=== PATIENT | male | born 2000 | race Caucasian/White ===

== ENCOUNTER 2022-04-08 14:52 | Emergency (ER) | payer OTHER | END 2022-04-08 15:55 | disposition home or self-care (01) | LOC: FER 14:52 | DX: F41.9 Anxiety disorder, unspecified (principal); I10 Essential (primary) hypertension; K21.9 Gastro-esophageal reflux disease without esophagitis; Z88.0 Allergy status to penicillin; Z88.5 Allergy status to narcotic agent; Z88.8 Allergy status to other drugs, medicaments and biological substances; Z91.041 Radiographic dye allergy status; Z79.899 Other long term (current) drug therapy; Z28.310 Unvaccinated for COVID-19 | CPT/HCPCS: 99283 ==